=== PATIENT | male | born 1995 | race Caucasian/White ===

== ENCOUNTER 2018-01-15 20:14 | Emergency (ER) | payer OTHER ==
--- NOTE | 2018-01-15 20:33 | ER Report ---
History and Physical Time Seen By MD: 20:32 Hx. of Stated Complaint: SUDDEN ONSET OF RLQ ABD PAIN AFTER SEX WITH RADIATION DOWN INTO R GROIN/TESTICLE. PT C/O SOME EDEMA TO TESTICLE. NO DYSURIA. HPI/ROS CHIEF COMPLAINT: Right lower quadrant abdominal pain, right testicular pain HISTORY OF PRESENT ILLNESS: 22-year-old male presents ambulatory to the ER complaining of right lower quadrant and right testicular pain after intercourse. He notes sudden onset several hours ago. Patient recalls no trauma to his testicles during intercourse. She notes no nausea or vomiting. He notes no fever or chills. He denies dysuria. He denies risk of STDs. REVIEW OF SYSTEMS: Respiratory: No cough, no dyspnea. Cardiovascular: No chest pain, no palpitations. Gastrointestinal: As above Musculoskeletal: No back pain. Reviewed Nurses Notes: Yes Old Medical Records Reviewed: Yes Hx Substance Use Disorder: No Hx Alcohol Use: Yes Constitutional Vital Sign - Last 24 Hours 01/15/18 01/15/18 01/15/18 01/15/18 20:24 20:26 20:29 20:35 Temp 98.2 Pulse 68 66 Resp 16 B/P (MAP) 134/82 (99) 134/82 130/73 (92) Pulse Ox 95 94 01/15/18 01/15/18 01/15/18 01/15/18 20:59 21:00 21:14 21:19 Pulse 67 78 76 B/P (MAP) 118/70 (86) Pulse Ox 94 97 98 01/15/18 01/15/18 01/15/18 01/15/18 21:30 21:34 21:49 22:00 Pulse 70 71 B/P (MAP) 108/61 (77) 105/58 (74) Pulse Ox 98 96 Physical Exam General Appearance: The patient is alert, has no immediate need for airway protection and no current signs of toxicity. Vital signs stable, afebrile, pulse ox normal Eyes: Pupils equal and round no injection. Respiratory: Chest is non tender, lungs are clear to auscultation. Cardiac: regular rate and rhythm Gastrointestinal: Abdomen is soft and non tender, no masses, bowel sounds normal. Genital: Circumcised male genitalia, right testicular tenderness, right spermatic cord tenderness Musculoskeletal: Neck: Neck is supple and non tender. Extremities have full range of motion and are non tender. Skin: No rashes or lesions. DIFFERENTIAL DIAGNOSIS: After history and physical exam differential diagnosis was considered for testicular pain including but not limited to epididymitis, orchitis, testicle trauma referred pain from kidney stone, inguinal hernia, and torsion of the testicle. Medical Decision Making Data Points Result Diagram: 01/15/18204001/15/182040 Laboratory Hematology Test 01/15/18 20:41 Red Blood Count 5.86 M/uL (4.00-5.60) Mean Corpuscular Volume 91.1 fL (80.0-96.0) Mean Corpuscular Hemoglobin 31.8 pg (26.0-33.0) Mean Corpuscular Hemoglobin Concent 34.9 g/dL (32.0-36.0) Red Cell Distribution Width 12.9 % (11.5-14.5) Mean Platelet Volume 8.6 fL (7.2-11.1) Neutrophils (%) (Auto) 47.8 % (39.4-72.5) Lymphocytes (%) (Auto) 38.1 % (17.6-49.6) Monocytes (%) (Auto) 9.4 % (4.1-12.4) Eosinophils (%) (Auto) 3.7 % (0.4-6.7) Basophils (%) (Auto) 1.0 % (0.3-1.4) Nucleated RBC Relative Count (auto) 0.0 /100WBC Neutrophils # (Auto) 4.2 K/uL (2.0-7.4) Lymphocytes # (Auto) 3.3 K/uL (1.3-3.6) Monocytes # (Auto) 0.8 K/uL (0.3-1.0) Eosinophils # (Auto) 0.3 K/uL (0.0-0.5) Basophils # (Auto) 0.1 K/uL (0.0-0.1) Nucleated RBC Absolute Count (auto) 0.00 K/uL Urine Color Yellow Urine Clarity Clear Urine pH 6.0 pH (4.8-9.5) Urine Specific [place] 1.028 Urine Protein Negative mg/dL (NEGATIVE) Urine Glucose (UA) Negative mg/dL (NEGATIVE) Urine Ketones Negative mg/dL (NEGATIVE) Urine Blood Negative (NEGATIVE) Urine Nitrite Negative (NEGATIVE) Urine Bilirubin Negative (NEGATIVE) Urine Urobilinogen Negative mg/dL (0.2-1.9) Urine Leukocyte Esterase Negative (NEGATIVE) Urine RBC <1 /HPF (0-2/HPF) Urine WBC 1 /HPF (0-5/HPF) Urine Squamous Epithelial Cells None /LPF (</=FEW) Urine Bacteria Negative /HPF (NONE-FEW) Urine Mucus None /HPF (NONE-FEW) Sodium Level 139 mmol/L (137-145) Potassium Level 4.0 mmol/L (3.5-5.0) Chloride Level 99 mmol/L (98-107) Carbon Dioxide Level 28 mmol/L (22-30) Blood Urea Nitrogen 24 mg/dl (9-21) Creatinine 1.30 mg/dl (0.66-1.25) Glomerular Filtration Rate Calc > 60.0 Random Glucose 103 mg/dl (75-110) Calcium Level 9.4 mg/dl (8.4-10.2) Total Bilirubin 0.4 mg/dl (0.2-1.3) Aspartate Amino Transf (AST/SGOT) 40 U/L (0-35) Alanine Aminotransferase (ALT/SGPT) 27 U/L (0-56) Alkaline Phosphatase 121 U/L (0-126) Total Protein 8.0 g/dl (6.3-8.2) Albumin 4.3 g/dl (3.5-5.0) Amylase Level 81 U/L (0-110) Lipase 79 U/L (23-300) Chemistry Test 01/15/18 20:41 White Blood Count 8.7 k/uL (4.5-11.0) Red Blood Count 5.86 M/uL (4.00-5.60) Hemoglobin 18.6 g/dL (14.0-18.0) Hematocrit 53.4 % (42.0-52.0) Mean Corpuscular Volume 91.1 fL (80.0-96.0) Mean Corpuscular Hemoglobin 31.8 pg (26.0-33.0) Mean Corpuscular Hemoglobin Concent 34.9 g/dL (32.0-36.0) Red Cell Distribution Width 12.9 % (11.5-14.5) Platelet Count 253 K/uL (150-450) Mean Platelet Volume 8.6 fL (7.2-11.1) Neutrophils (%) (Auto) 47.8 % (39.4-72.5) Lymphocytes (%) (Auto) 38.1 % (17.6-49.6) Monocytes (%) (Auto) 9.4 % (4.1-12.4) Eosinophils (%) (Auto) 3.7 % (0.4-6.7) Basophils (%) (Auto) 1.0 % (0.3-1.4) Nucleated RBC Relative Count (auto) 0.0 /100WBC Neutrophils # (Auto) 4.2 K/uL (2.0-7.4) Lymphocytes # (Auto) 3.3 K/uL (1.3-3.6) Monocytes # (Auto) 0.8 K/uL (0.3-1.0) Eosinophils # (Auto) 0.3 K/uL (0.0-0.5) Basophils # (Auto) 0.1 K/uL (0.0-0.1) Nucleated RBC Absolute Count (auto) 0.00 K/uL Urine Color Yellow Urine Clarity Clear Urine pH 6.0 pH (4.8-9.5) Urine Specific [place] 1.028 Urine Protein Negative mg/dL (NEGATIVE) Urine Glucose (UA) Negative mg/dL (NEGATIVE) Urine Ketones Negative mg/dL (NEGATIVE) Urine Blood Negative (NEGATIVE) Urine Nitrite Negative (NEGATIVE) Urine Bilirubin Negative (NEGATIVE) Urine Urobilinogen Negative mg/dL (0.2-1.9) Urine Leukocyte Esterase Negative (NEGATIVE) Urine RBC <1 /HPF (0-2/HPF) Urine WBC 1 /HPF (0-5/HPF) Urine Squamous Epithelial Cells None /LPF (</=FEW) Urine Bacteria Negative /HPF (NONE-FEW) Urine Mucus None /HPF (NONE-FEW) Glomerular Filtration Rate Calc > 60.0 Calcium Level 9.4 mg/dl (8.4-10.2) Total Bilirubin 0.4 mg/dl (0.2-1.3) Aspartate Amino Transf (AST/SGOT) 40 U/L (0-35) Alanine Aminotransferase (ALT/SGPT) 27 U/L (0-56) Alkaline Phosphatase 121 U/L (0-126) Total Protein 8.0 g/dl (6.3-8.2) Albumin 4.3 g/dl (3.5-5.0) Amylase Level 81 U/L (0-110) Lipase 79 U/L (23-300) Urinalysis Test 01/15/18 20:41 Urine Color Yellow Urine Clarity Clear Urine pH 6.0 pH (4.8-9.5) Urine Specific [place] 1.028 Urine Protein Negative mg/dL (NEGATIVE) Urine Glucose (UA) Negative mg/dL (NEGATIVE) Urine Ketones Negative mg/dL (NEGATIVE) Urine Blood Negative (NEGATIVE) Urine Nitrite Negative (NEGATIVE) Urine Bilirubin Negative (NEGATIVE) Urine Urobilinogen Negative mg/dL (0.2-1.9) Urine Leukocyte Esterase Negative (NEGATIVE) Urine RBC <1 /HPF (0-2/HPF) Urine WBC 1 /HPF (0-5/HPF) Urine Squamous Epithelial Cells None /LPF (</=FEW) Urine Bacteria Negative /HPF (NONE-FEW) Urine Mucus None /HPF (NONE-FEW) EKG/Imaging Imaging Results: Ultrasound of the testicular ultrasound was obtained. The results of the study are EXAMINATION: SCROTAL ULTRASOUND DATE: 01/15/2018 8:46 PM. INDICATION: Right testicle pain. TECHNIQUE: Grayscale, color, and pulsed Doppler ultrasound images of the scrotum is performed. COMPARISON: None. FINDINGS: Both testicles are symmetric and normal in echogenicity and size. The right testicle measures 4.0 x 2.1 x 3.1 cm in size and demonstrates normal homogeneous echogenicity. No focal lesion is seen in the right testicle. The right epididymis is unremarkable. The arterial inflow to the right testicle has normal low resistance. Mildly dilated vasculature adjacent to the right testicle. The left testicle measures 3.9 x 2.1 x 2.6 cm in size and demonstrates normal homogeneous echogenicity. No focal mass is seen in the left testicle. The left epididymis is unremarkable. The arterial inflow to the left testicle has normal low resistance. IMPRESSION: Suspected right varicocele. No evidence of torsion or testicular mass. The study was read by the radiologist. I viewed the images myself on the PACS system. ED Course/Re-evaluation Clinical Indication for ER IV: Hydration, IV Access ED Course Patient was admitted to an examination room. H&P was done. The differential diagnosis was considered. On clinical examination. Patient has moderate right testicular tenderness, as well as spermatic cord tenderness. Sudden onset occurred during intercourse. Patient has right lower quadrant radiation of the pain. There are no signs of appendicitis. On clinical examination. Testicular ultrasound was performed to rule out acute testicular torsion. Patient's diagnostic studies including urinalysis are unremarkable. Agents advised to conservative treatment plan of ibuprofen 600, motor grams 3 times daily. Warm soaks. He is advised to follow-up with urology if unimproved in 3-5 days for reevaluation. There was a varicocele noted on the ultrasound. Decision to Disposition Date: Jan 15, 2018 Decision to Disposition Time: 21:47 Depart Departure Latest Vital Signs Vital Signs Date Time Temp Pulse Resp B/P (MAP) Pulse Ox O2 Delivery O2 Flow Rate FiO2 01/15/18 22:00 105/58 (74) 01/15/18 21:49 71 96 01/15/18 20:26 98.2 16 Impression: Primary Impression: Right testicular pain Additional Impression: Right lower quadrant abdominal pain Condition: Improved Disposition: HOME OR SELF-CARE Referrals: [facility] MD Patient Instructions: Abdominal Pain (ED), Varicocele (ED) Additional Instructions: Take ibuprofen 200 mg 3-4 tablets 3 times a day with food Apply heating pad to the affected area or warm soaks in the bathtub Follow-up with Dr. Christian urology early next week if unimproved Problem Qualifiers BRAYAN SCHMITZ DO Jan 15, 2018 20:33
[2018-01-15] MEDS ORDERED: NS(*) 0.9% 1000 ML BAG 1,000 ML IV ONE (20:46)
[2018-01-15] MEDS ORDERED: fentaNYL CITR 100 MCG/2 ML AMP IVP ONE (20:50)
[2018-01-15] MEDS ORDERED: KETOROLAC 30 MG/ML VIAL IVP ONE (20:50)
[2018-01-15] MEDS ORDERED: ONDANSETRON 4 MG/2 ML VIAL IVP ONE (20:50)
[2018-01-15 20:54] LABS: PLATELET COUNT, AUTOMATED 253 K/uL (150-450)
[2018-01-15 22:00] VITALS: BP 105/58
--- NOTE | 2018-01-15 22:10 | RADIOLOGY IMAGING REPORT ---
FACILITY: [facility] PATIENT NAME: Micky Garvey : 1995 MR: [id number] V: [id number] EXAM DATE: ORDERING PHYSICIAN: BRAYAN SCHMITZ TECHNOLOGIST: Location: [facility] Patient: Micky Garvey : 1995 Visit/Account:[id number] Date of Sevice: 01/15/2018 EXAMINATION: SCROTAL ULTRASOUND DATE: 01/15/2018 8:46 PM. INDICATION: Right testicle pain. TECHNIQUE: Grayscale, color, and pulsed Doppler ultrasound images of the scrotum is performed. COMPARISON: None. FINDINGS: Both testicles are symmetric and normal in echogenicity and size. The right testicle measures 4.0 x 2.1 x 3.1 cm in size and demonstrates normal homogeneous echogenici ty. No focal lesion is seen in the right testicle. The right epididymis is unremarkable. The arterial inflow to the right testicle has normal low resistance. Mildly dilated vasculature adjacent to the right testicle. The left testicle measures 3.9 x 2.1 x 2.6 cm in size and demonstrates normal homogeneous echogenicit y. No focal mass is seen in the left testicle. The left epididymis is unremarkable. The arterial infl ow to the left testicle has normal low resistance. IMPRESSION: Suspected right varicocele. No evidence of torsion or testicular mass. Report Dictated By: Gabo Mendoza MD at 01/15/2018 10:04 PM Report E-Signed By: Gabo Mendoza MD at 01/15/2018 10:07 PM WSN:[id number]
== END 2018-01-15 22:05 | disposition home or self-care (01) ==
LOC: ER 20:48
DX: N50.811 Right testicular pain (principal); R10.31 Right lower quadrant pain
CPT/HCPCS: 76870; 81001; 82150; 83690; 85025; 87491; 87591; 96361; 96374; 96375; 99284; J1885; J2405; J3010; J7030; 82040; 82247; 82310; 82374; 82435; 82565; 82947; 84075; 84132; 84155; 84295; 84450; 84460; 84520

== ENCOUNTER 2018-01-22 23:18 | Emergency (ER) | payer OTHER ==
--- NOTE | 2018-01-22 23:23 | ER Report ---
History and Physical Time Seen By MD: 23:23 HPI/ROS CHIEF COMPLAINT: Right testicular pain, right lower quadrant pain HISTORY OF PRESENT ILLNESS: 22-year-old male presents with continued recurrence of right lower quadrant pain and right testicular pain. She was seen here approximately a week ago with right testicular pain after intercourse. He had an ultrasound that was negative for torsion. At that time. Patient was advised to conservative treatment plan for a varicocele that was found on his right testicle was advised to follow-up with urology, which he has not yet followed up. Patient notes continued recurrent episodes of severe right testicular pain lasting approximately 24-36 hours. Patient reports no inciting events other than intercourse. Patient denies urinary tract symptoms. Patient denies inguinal swelling. Patient denies inguinal hernia. Patient notes the pain radiates to his right lower quadrant. He does have some nausea. He's had no vomiting. He notes no change in his bowel habits such as diarrhea or co nstipation. REVIEW OF SYSTEMS: Respiratory: No cough, no dyspnea. Cardiovascular: No chest pain, no palpitations. Gastrointestinal: As above Musculoskeletal: No back pain. Allergies: Coded Allergies: No Known Drug Allergies (Unverified , 01/22/18) Home Meds Active Scripts Doxycycline Hyclate (DOXYCYCLINE HYCLATE) 100 Mg Capsule, 100 MG PO BID for infection, #14 CAPSULE Prov:BRAYAN SCHMITZ 01/23/18 Reviewed Nurses Notes: Yes Old Medical Records Reviewed: Yes Hx Substance Use Disorder: No Hx Alcohol Use: Yes Constitutional Vital Sign - Last 24 Hours 01/22/18 01/22/18 01/22/18 01/22/18 23:23 23:24 23:33 23:38 Temp 98.1 Pulse 54 59 56 Resp 14 B/P (MAP) 115/71 115/71 (86) Pulse Ox 96 95 94 O2 Delivery Room Air 01/22/18 01/23/18 01/23/18 01/23/18 23:53 00:08 00:19 00:23 Pulse 54 ??? 56 B/P (MAP) 102/60 (74) Pulse Ox 92 93 01/23/18 01/23/18 00:30 01:16 Pulse 85 Resp 16 B/P (MAP) 106/58 (74) 132/85 (101) Pulse Ox 95 O2 Delivery Room Air Physical Exam General Appearance: The patient is alert, has no immediate need for airway protection and no current signs of toxicity. On her distress, vital signs stable, afebrile, pulse ox normal Eyes: Pupils equal and round no injection. Respiratory: Chest is non tender, lungs are clear to auscultation. Cardiac: regular rate and rhythm Gastrointestinal: Abdomen is soft and non tender, no masses, bowel sounds normal. Genital: Normal circumcised male genitalia, there is tenderness and fullness to the right testicle. There is fullness to the spermatic cord. Extending all the way up into the inguinal canal. The. There is some tenderness in the right lower quadrant. There is some guarding but no rebound. Musculoskeletal: Neck: Neck is supple and non tender. Extremities have full range of motion and are non tender. Skin: No rashes or lesions. DIFFERENTIAL DIAGNOSIS: After history and physical exam differential diagnosis was considered for testicular pain including but not limited to epididymitis, orchitis, referred pain from kidney stone, inguinal hernia, and torsion of the testicle. Additionally,abdominal pain including but not limited to appendicitis, cholecystitis, gastritis and urinary tract infection. Medical Decision Making Data Points Result Diagram: 01/22/18 2335 01/22/18 2335 Laboratory Hematology Test 01/22/18 23:25 01/22/18 23:35 Urine Color Yellow Urine Clarity Slightly-cloudy Urine pH 6.0 pH (4.8-9.5) Urine Specific Whitman 1.030 Urine Protein Negative mg/dL (NEGATIVE) Urine Glucose (UA) Negative mg/dL (NEGATIVE) Urine Ketones Negative mg/dL (NEGATIVE) Urine Blood Negative (NEGATIVE) Urine Nitrite Negative (NEGATIVE) Urine Bilirubin Negative (NEGATIVE) Urine Urobilinogen Negative mg/dL (0.2-1.9) Urine Leukocyte Esterase Negative (NEGATIVE) Urine RBC None /HPF (0-2/HPF) Urine WBC 1 /HPF (0-5/HPF) Urine Squamous Epithelial Cells None /LPF (</=FEW) Urine Transitional Epithelial Cells Few /LPF (NONE-FEW) Urine Bacteria Negative /HPF (NONE-FEW) Urine Mucus Few /HPF (NONE-FEW) Red Blood Count 5.44 M/uL (4.00-5.60) Mean Corpuscular Volume 91.8 fL (80.0-96.0) Mean Corpuscular Hemoglobin 31.3 pg (26.0-33.0) Mean Corpuscular Hemoglobin Concent 34.1 g/dL (32.0-36.0) Red Cell Distribution Width 12.9 % (11.5-14.5) Mean Platelet Volume 8.6 fL (7.2-11.1) Neutrophils (%) (Auto) 48.4 % (39.4-72.5) Lymphocytes (%) (Auto) 36.3 % (17.6-49.6) Monocytes (%) (Auto) 9.5 % (4.1-12.4) Eosinophils (%) (Auto) 3.5 % (0.4-6.7) Basophils (%) (Auto) 2.3 % (0.3-1.4) Nucleated RBC Relative Count (auto) 0.1 /100WBC Neutrophils # (Auto) 3.6 K/uL (2.0-7.4) Lymphocytes # (Auto) 2.7 K/uL (1.3-3.6) Monocytes # (Auto) 0.7 K/uL (0.3-1.0) Eosinophils # (Auto) 0.3 K/uL (0.0-0.5) Basophils # (Auto) 0.2 K/uL (0.0-0.1) Nucleated RBC Absolute Count (auto) 0.01 K/uL Sodium Level 138 mmol/L (137-145) Potassium Level 4.0 mmol/L (3.5-5.0) Chloride Level 100 mmol/L (98-107) Carbon Dioxide Level 29 mmol/L (22-30) Blood Urea Nitrogen 21 mg/dl (9-21) Creatinine 1.30 mg/dl (0.66-1.25) Glomerular Filtration Rate Calc > 60.0 Random Glucose 107 mg/dl (75-110) Calcium Level 9.0 mg/dl (8.4-10.2) Total Bilirubin 0.3 mg/dl (0.2-1.3) Aspartate Amino Transf (AST/SGOT) 41 U/L (0-35) Alanine Aminotransferase (ALT/SGPT) 36 U/L (0-56) Alkaline Phosphatase 103 U/L (0-126) Total Protein 7.3 g/dl (6.3-8.2) Albumin 4.0 g/dl (3.5-5.0) Amylase Level 66 U/L (0-110) Lipase 94 U/L (23-300) Chemistry Test 01/22/18 23:25 01/22/18 23:35 Urine Color Yellow Urine Clarity Slightly-cloudy Urine pH 6.0 pH (4.8-9.5) Urine Specific Whitman 1.030 Urine Protein Negative mg/dL (NEGATIVE) Urine Glucose (UA) Negative mg/dL (NEGATIVE) Urine Ketones Negative mg/dL (NEGATIVE) Urine Blood Negative (NEGATIVE) Urine Nitrite Negative (NEGATIVE) Urine Bilirubin Negative (NEGATIVE) Urine Urobilinogen Negative mg/dL (0.2-1.9) Urine Leukocyte Esterase Negative (NEGATIVE) Urine RBC None /HPF (0-2/HPF) Urine WBC 1 /HPF (0-5/HPF) Urine Squamous Epithelial Cells None /LPF (</=FEW) Urine Transitional Epithelial Cells Few /LPF (NONE-FEW) Urine Bacteria Negative /HPF (NONE-FEW) Urine Mucus Few /HPF (NONE-FEW) White Blood Count 7.5 k/uL (4.5-11.0) Red Blood Count 5.44 M/uL (4.00-5.60) Hemoglobin 17.0 g/dL (14.0-18.0) Hematocrit 49.9 % (42.0-52.0) Mean Corpuscular Volume 91.8 fL (80.0-96.0) Mean Corpuscular Hemoglobin 31.3 pg (26.0-33.0) Mean Corpuscular Hemoglobin Concent 34.1 g/dL (32.0-36.0) Red Cell Distribution Width 12.9 % (11.5-14.5) Platelet Count 230 K/uL (150-450) Mean Platelet Volume 8.6 fL (7.2-11.1) Neutrophils (%) (Auto) 48.4 % (39.4-72.5) Lymphocytes (%) (Auto) 36.3 % (17.6-49.6) Monocytes (%) (Auto) 9.5 % (4.1-12.4) Eosinophils (%) (Auto) 3.5 % (0.4-6.7) Basophils (%) (Auto) 2.3 % (0.3-1.4) Nucleated RBC Relative Count (auto) 0.1 /100WBC Neutrophils # (Auto) 3.6 K/uL (2.0-7.4) Lymphocytes # (Auto) 2.7 K/uL (1.3-3.6) Monocytes # (Auto) 0.7 K/uL (0.3-1.0) Eosinophils # (Auto) 0.3 K/uL (0.0-0.5) Basophils # (Auto) 0.2 K/uL (0.0-0.1) Nucleated RBC Absolute Count (auto) 0.01 K/uL Glomerular Filtration Rate Calc > 60.0 Calcium Level 9.0 mg/dl (8.4-10.2) Total Bilirubin 0.3 mg/dl (0.2-1.3) Aspartate Amino Transf (AST/SGOT) 41 U/L (0-35) Alanine Aminotransferase (ALT/SGPT) 36 U/L (0-56) Alkaline Phosphatase 103 U/L (0-126) Total Protein 7.3 g/dl (6.3-8.2) Albumin 4.0 g/dl (3.5-5.0) Amylase Level 66 U/L (0-110) Lipase 94 U/L (23-300) Urinalysis Test 01/22/18 23:25 Urine Color Yellow Urine Clarity Slightly-cloudy Urine pH 6.0 pH (4.8-9.5) Urine Specific Whitman 1.030 Urine Protein Negative mg/dL (NEGATIVE) Urine Glucose (UA) Negative mg/dL (NEGATIVE) Urine Ketones Negative mg/dL (NEGATIVE) Urine Blood Negative (NEGATIVE) Urine Nitrite Negative (NEGATIVE) Urine Bilirubin Negative (NEGATIVE) Urine Urobilinogen Negative mg/dL (0.2-1.9) Urine Leukocyte Esterase Negative (NEGATIVE) Urine RBC None /HPF (0-2/HPF) Urine WBC 1 /HPF (0-5/HPF) Urine Squamous Epithelial Cells None /LPF (</=FEW) Urine Transitional Epithelial Cells Few /LPF (NONE-FEW) Urine Bacteria Negative /HPF (NONE-FEW) Urine Mucus Few /HPF (NONE-FEW) EKG/Imaging Imaging Results: CT scan of the abdomen and pelvis with IV contrast was obtained. The results of the study are CT of the abdomen and pelvis with contrast: Indication: Right lower quadrant pain. Technique: Helical CT was performed through the abdomen and pelvis following IV contrast enhancement with 75 cc of Isovue-370. Multiplanar reconstructions are reviewed. One of the following dose optimization techniques was utilized in the performance of this exam: Automated exposure control; adjustment of the mA and/or kV according to the patient's size; or use of an iterative reconstruction technique. Specific details can be referenced in the facility's radiology CT exam operational policy. Comparison: None. Lower lung woodard: No focal parenchymal or pleural abnormality is identified. Liver: Normal in size, shape, and density. There is uniform enhancement of the venous structures. Gallbladder/biliary tree: The gallbladder is normal in size and homogeneous in density. The bile ducts are not dilated. Pancreas: Normal in size, shape, and density. Spleen: Normal in size, shape, and density. Adrenal glands: Within normal limits. Kidneys/urinary bladder: The kidneys are normal in size, shape, and density. There are no signs of urinary tract calculus or obstruction. The bladder is unremarkable, as visualized. Intestinal structures: Unremarkable, as visualized. There are no signs of obstruction or focal inflammatory changes. The appendix appears normal in size and shape. Pelvis: Unremarkable. Aorta and vascular structures: Within normal limits. Ascites or fluid collections: None seen. Skeletal structures: Intact and unremarkable. The study was read by the radiologist. I viewed the images myself on the PACS system. Old ultrasound report was reviewed EXAMINATION: SCROTAL ULTRASOUND DATE: 01/15/2018 8:46 PM. INDICATION: Right testicle pain. TECHNIQUE: Grayscale, color, and pulsed Doppler ultrasound images of the scrotum is performed. COMPARISON: None. FINDINGS: Both testicles are symmetric and normal in echogenicity and size. The right testicle measures 4.0 x 2.1 x 3.1 cm in size and demonstrates normal homogeneous echogenicity. No focal lesion is seen in the right testicle. The right epididymis is unremarkable. The arterial inflow to the right testicle has normal low resistance. Mildly dilated vasculature adjacent to the right testicle. The left testicle measures 3.9 x 2.1 x 2.6 cm in size and demonstrates normal homogeneous echogenicity. No focal mass is seen in the left testicle. The left epididymis is unremarkable. The arterial inflow to the left testicle has normal low resistance. IMPRESSION: Suspected right varicocele. No evidence of torsion or testicular mass. ED Course/Re-evaluation Clinical Indication for ER IV: IV Access ED Course Patient was admitted to an examination room. H&P was done. The differential diagnoses was considered. Patient with recurrent right testicular pain radiatin g to his right lower quadrant. Patient's had several episodes over a week since he was seen back 01/15/18. At that time he had an ultrasound that showed a varicocele. He was advised to follow-up with urology. He states he has a follow-up appointment next Friday with urology in [place]. Patient states he's had 2 previous episodes of pain, one which was quite severe. He was having some difficulty breathing. He attempted warm compresses and ibuprofen with little improvement. He states the pain lasted almost 24 hours. He now notes recurrence of his pain tonight. He's had some nausea but no vomiting. He reports with his last evaluation that he had some difficulty breathing when he retired home after receiving fentanyl 50 g IV here. He was discharged home on only ibuprofen. Tonight with continued pain and radiation to his right lower quadrant. A CT scan of the abdomen and pelvis with IV contrast was performed. It was unremarkable. He is provided a copy of his CT scan report. He also would like the images to take with him to follow-up with urology. His CT scan and ultrasound were burned to a disc which was provided to him. Patient will be treated prophylactically for epididymitis. Although last visit. His urinalysis was sent for GC and Chlamydia was unremarkable. He'll be given a course of doxycycline 100 mg by mouth twice a day for 7 days. He is advised to continue ibuprofen and Tylenol as needed for symptom relief. He was offered stronger narcotic pain medication but he was reluctant to proceed. Decision to Disposition Date: Jan 23, 2018 Decision to Disposition Time: 01:04 Depart Departure Latest Vital Signs Vital Signs Date Time Temp Pulse Resp B/P (MAP) Pulse Ox O2 Delivery O2 Flow Rate FiO2 01/23/18 01:16 85 16 132/85 (101) 95 Room Air 01/22/18 23:23 98.1 Impression: Primary Impression: Epididymitis, right Additional Impression: Right lower quadrant abdominal pain Condition: Improved Disposition: HOME OR SELF-CARE New Scripts Doxycycline Hyclate (DOXYCYCLINE HYCLATE) 100 Mg Capsule 100 MG PO BID for infection, #14 CAPSULE Prov: BRAYAN SCHMITZ DO 01/23/18 Patient Instructions: Epididymitis (ED) Additional Instructions: Take ibuprofen 200 mg 3-4 tablets 3 times a day with food Care antibiotic with a full glass of water, one hour before meals or 2 hours after Follow-up with urology as planned next Friday Problem Qualifiers BRAYAN SCHMITZ DO Jan 22, 2018 23:23
[2018-01-22] MEDS ORDERED: ONDANSETRON 4 MG/2 ML VIAL IVP ONE (23:40)
[2018-01-22] MEDS ORDERED: KETOROLAC 30 MG/ML VIAL IVP ONE (23:40)
[2018-01-22 23:50] LABS: PLATELET COUNT, AUTOMATED 230 K/uL (150-450)
[2018-01-23] MEDS ORDERED: IOPAMIDOL 76% 75 ML INFUS BTL 75 ML ONE (00:10)
--- NOTE | 2018-01-23 00:52 | RADIOLOGY IMAGING REPORT ---
[place] [facility] [place] Micky Garvey : 1995 MR: [id number] V: [id number] EXAM DATE: ORDERING PHYSICIAN: BRAYAN SCHMITZ TECHNOLOGIST: Location: [facility] - [place] Patient: Micky Garvey : 1995 Visit/Account:[id number] Date of Sevice: 01/22/2018 CT of the abdomen and pelvis with contrast: Indication: Right lower quadrant pain. Technique: Helical CT was performed through the abdomen and pelvis following IV contrast enhancement with 75 cc of Isovue-370. Multiplanar reconstructions are reviewed. One of the following dose optimization techniques was utilized in the performance of this exam: Autom ated exposure control; adjustment of the mA and/or kV according to the patient's size; or use of an i terative reconstruction technique. Specific details can be referenced in the facility's radiology CT exam operational policy. Comparison: None. Lower lung woodard: No focal parenchymal or pleural abnormality is identified. Liver: Normal in size, shape, and density. There is uniform enhancement of the venous structures. Gallbladder/biliary tree: The gallbladder is normal in size and homogeneous in density. The bile duct s are not dilated. Pancreas: Normal in size, shape, and density. Spleen: Normal in size, shape, and density. Adrenal glands: Within normal limits. Kidneys/urinary bladder: The kidneys are normal in size, shape, and density. There are no signs of ur inary tract calculus or obstruction. The bladder is unremarkable, as visualized. Intestinal structures: Unremarkable, as visualized. There are no signs of obstruction or focal inflam matory changes. The appendix appears normal in size and shape. Pelvis: Unremarkable. Aorta and vascular structures: Within normal limits. Ascites or fluid collections: None seen. Skeletal structures: Intact and unremarkable. Impression: No acute process is identified in the abdomen or pelvis. Report Dictated By: Quoc Renteria MD at 01/23/2018 12:42 AM Report E-Signed By: Quoc Renteria MD at 01/23/2018 12:49 AM WSN:[id number]
[2018-01-23] MEDS ORDERED: DOXY-181 PO (01:06)
[2018-01-23 01:16] VITALS: BP 132/85
== END 2018-01-23 01:24 | disposition home or self-care (01) ==
LOC: ER 23:31
DX: N45.1 Epididymitis (principal); R10.31 Right lower quadrant pain
CPT/HCPCS: 74177; 81001; 82150; 83690; 85025; 96374; 96375; 99284; J1885; J2405; Q9967; 82040; 82247; 82310; 82374; 82435; 82565; 82947; 84075; 84132; 84155; 84295; 84450; 84460; 84520